=== PATIENT | female | born 1975 | race Caucasian/White ===

== ENCOUNTER 2019-11-19 22:06 | Emergency (ER) | payer OTHER ==
[~2019-11-19] VITALS: Ht 162.6 cm; Wt 63.5 kg
[2019-11-19] MEDS ORDERED: LEVOTHYROXINE50 MCG PO (22:29)
[2019-11-20] MEDS ORDERED: ZYPREXA10 MG PO (10:55)
--- OUTSIDE RECORDS SUMMARY | 2019-11-20 11:22 | XMS ---
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 [place] - 3 Facilities in 90 Days - [facility] - 2 Visits in 30 Days CARE PROVIDERS [facility]: Federally Qualified 07/19/2019-07/18/2020 [facility] ([facility]) Recovery PHONE: [phone] [facility]/Center: Multi-Specialty 04/29/2019-04/28/2020 Behavioral PHONE: Unknown FABIEN BAHENA [facility] Current PHONE: [phone] Cole has no Care Guidelines for this patient. E.D. VISIT COUNT (12 MO.) 1 Shalom Navarro [address] 2 [place] 1 [facility] 1 GENARO Marin TOTAL 7 NOTE: Visits indicate total known visits. ED/UCC VISIT TRACKING (12 MO.) 11/19/2019 22:07 GENARO Michelle [place] TYPE: Emergency COMPLAINT: - MEDICAL CLEARANCE 11/08/2019 14:51 [facility] TYPE: Emergency DIAGNOSES: 11100. [facility] [phone]. 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 11/02/2019 13:33 [facility] [place] TYPE: Emergency DIAGNOSES: - Bipolar disorder, unspecified - mental health - Other stimulant abuse, uncomplicated 06/13/2019 20:27 [facility] [place] TYPE: Psychiatric Emergency DIAGNOSES: - Bipolar disorder, current episode manic without psychotic fea - amr 05/25/2019 20:18 [facility] [place] TYPE: Psychiatric Emergency DIAGNOSES: - Unspecified psychosis not due to a substance or known physiol - Bipolar disorder, current episode manic severe with psychotic - Restlessness and agitation 05/24/2019 12:31 Shalom Knight [place] TYPE: Emergency DIAGNOSES: - Unspecified psychosis not due to a substance or known physiol - OD 05/08/2019 15:17 Deedee Lealland [place] TYPE: Emergency DIAGNOSES: - Manic episode, unspecified - Manic Behavior - Agitation INPATIENT VISIT TRACKING (12 MO.) 11/08/2019 14:51 [facility] TYPE: General Medicine DIAGNOSES: 99810. 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
== END 2019-11-20 11:20 | disposition home or self-care (01) ==
LOC: ED 22:06
DX: F31.9 Bipolar disorder, unspecified (principal); F15.90 Other stimulant use, unspecified, uncomplicated; F17.200 Nicotine dependence, unspecified, uncomplicated; Z88.0 Allergy status to penicillin; Z88.8 Allergy status to other drugs, medicaments and biological substances; Z79.899 Other long term (current) drug therapy
CPT/HCPCS: 70150; 80053; 80176; 81001; 84443; 84703; 85025; 96372; 99285-25; G0480; J2060; J3486